=== PATIENT | female | born 1990 | race Caucasian/White ===

== ENCOUNTER 2017-06-26 19:55 | Emergency (ER) | payer OTHER ==
[~2017-06-26] VITALS: Ht 165.1 cm; Wt 125.2 kg
[~2017-06-26 19:55] MED LIST: ALBU90OI INH; AZIT250 PO; BUPR100 PO; BUPR100ER PO; CEPH500 PO; CODACE30 PO; Cortisporin Ear10 M1 RIGHTEAR; DIPATR PO; Esgic Tablet1 EACH PO; Floxin10 ML RIGHTEAR; HYDACE5 PO; IBUP800 PO; Keflex500 MG PO; MEDR10 PO; Mobic7.5 MG PO; NAPR500 PO; NITR100CA PO; OXYACE5T; OXYACE5T PO; PROM25 PO; Pepcid40 MG PO; RANI150 PO; RISP1 PO; ROXICODONE5 MG PO; SERT50 PO; VIT D3 PO; Verotin-Gr Cap1 EACH PO; Zofran Odt8 MG SL; Zofran4 MG PO; [UNRECOGNIZED DRUG - OTHER]
[2017-06-26] MEDS ORDERED: LAMO25 PO (20:11)
[2017-06-26] MEDS ORDERED: Prednisone50 MG PO (21:20)
[2017-06-26] MEDS ORDERED: Robaxin500 MG PO (21:20)
== END 2017-06-26 21:35 | disposition home or self-care (01) ==
LOC: ER 19:55
DX: M54.16 Radiculopathy, lumbar region (principal); Z79.899 Other long term (current) drug therapy
CPT/HCPCS: 96372; 99283; J1885

== ENCOUNTER → 2017-09-13 | Outpatient (CLI) | payer OTHER ==
[~2017-09-13] MED LIST changes: +LAMO25 PO; +Prednisone50 MG PO; +Robaxin500 MG PO
[2017-09-13 12:47] LABS: U Amphetamine Screen Not Detected; U Barbituate Screen Not Detected; U Benzodiazapine Screen Not Detected; U Cannabinoids Screen Not Detected; U Cocaine Screen Not Detected; U Methadone Screen Not Detected; U Methamphetamine Screen Not Detected; U Opiates Screen Not Detected; U Phencyclidine Screen Not Detected
[2017-09-13 12:48] LABS: U Buprenorphine Screen Not Detected; U Oxycodone Screen Not Detected; U Propoxyphene Screen Not Detected
== END ==
LOC: LAB SHORT 12:00 → LAB 12:00
PROVIDERS: Registered Nurse
DX: Z51.81 Encounter for therapeutic drug level monitoring (principal); Z79.899 Other long term (current) drug therapy

== ENCOUNTER 2019-10-11 09:15 | Emergency (ER) | payer OTHER ==
[~2019-10-11] VITALS: Ht 165.1 cm; Wt 135.6 kg
[~2019-10-11 09:15] MED LIST changes: +Inderal 20 mg T20 MG PO; +LAMO100 PO; -LAMO25 PO; +LORA2 PO; +ZOLP10
[2019-10-11] MEDS ORDERED: ARIP10 PO (09:25)
[2019-10-11] MEDS ORDERED: FLUOXETINE HCL60 MG PO (09:26)
[2019-10-11] MEDS ORDERED: TOPIRAMATE ER50 MG PO (09:26)
[2019-10-11 09:54] LABS: BASOPHILS ABSOLUTE AUTO 0.04 K/mm3 (0.00-0.23); BASOPHILS PERCENT AUTO 1 % (0-2); EOSINOPHILS ABSOLUTE AUTO 0.09 K/mm3 (0.00-0.68); EOSINOPHILS PERCENT AUTO 1 % (0-6); Hematocrit 43.3 % (33.0-51.0); Hemoglobin 13.7 g/dL (11.5-16.0); IMMATURE GRAN ABSOLUTE AUTO 0.03 K/mm3 (0.00-0.10); IMMATURE GRAN PERCENT AUTO 0 % (0-1); LYMPHOCYTES PERCENT AUTO 22 % (21-46); MONOCYTES ABSOLUTE AUTO 0.61 K/mm3 (0.16-1.47); MONOCYTES PERCENT AUTO 7 % (4-13); Mean Corpuscular HGB 27.5 pg (26.0-34.0); Mean Corpuscular HGB Conc 31.6 g/dL (31.5-36.5); Mean Platelet Volume 9.7 fL (9.1-12.4); NEUTROPHILS PERCENT AUTO 68 % (41-73); Platelet Count 301 K/mm3 (150-400); RDW Coefficient Variation 12.9 % (11.7-14.2); RDW Standard Deviation 40.5 fL (35.1-46.3); Red Blood Cell Count 4.99 M/mm3 (3.80-5.20); White Blood Cell Count 8.47 K/mm3 (4.00-11.30)
[2019-10-11 09:56] LABS: Mean Corpuscular Volume 87 fL (80-100)
[2019-10-11 10:10] LABS: Alanine Aminotransfer (ALT/SGP 36 U/L (12-78); Albumin, Blood 3.5 g/dL (3.4-5.0); Albumin/Globulin Ratio 0.8 (0.8-1.8); Alk Phos 78 U/L (50-136); Anion Gap 7 mmol/L (6-16); Aspartate Aminotrans (AST/SGOT 45 U/L (12-37); Bilirubin, Total 0.6 mg/dL (0.1-1.0); Blood Urea Nitrogen 10 mg/dL (8-24); Bun/Creatinine Ratio 13.2 (12.0-20.0); CO2, Blood 22 mmol/L (21-32); Calcium, Blood 8.8 mg/dL (8.5-10.1); Chloride, Blood 109 mmol/L (98-108); Creatinine, Blood 0.76 mg/dL (0.40-1.00); Globulin, Blood 4.2 g/dL (2.2-4.0); Glomerular Filtration Rate >60 (60-); Glucose, Blood 114 mg/dL (70-99); Potassium, Blood 5.4 mmol/L (3.5-5.5); Sodium, Blood 138 mmol/L (136-145); Total Protein, Blood 7.7 g/dL (6.4-8.2)
[2019-10-11] MEDS ORDERED: PRAHYD1AEA PR (11:15)
== END 2019-10-11 11:24 | disposition home or self-care (01) ==
LOC: ER 09:15
PROVIDERS: Emergency Medicine
DX: K64.8 Other hemorrhoids (principal); F41.9 Anxiety disorder, unspecified; Z79.899 Other long term (current) drug therapy
CPT/HCPCS: 36415; 74176; 80053; 85025; 99285-25

== ENCOUNTER 2019-10-19 11:35 | Day surgery (SDC) | payer OTHER ==
[~2019-10-19] VITALS: Ht 167.6 cm; Wt 132.8 kg
[~2019-10-19 11:35] MED LIST changes: +AMBIEN10 MG PO; +ARIP10 PO; +FLUOXETINE HCL60 MG PO; +Lorazepam1 MG PO; +PRAHYD1AEA PR; +TOPIRAMATE ER50 MG PO
--- NOTE | 2019-10-19 12:11 | NUR ---
Ambulatory in Day Surgery History, Chart, Medications and Allergies reviewed before start of procedure. Patient confirms NPO status and agrees with scheduled surgery. Pre-Op teaching done. Pt verbalizes understanding.
--- NOTE | 2019-10-19 14:01 | NUR ---
REPORT FROM ORIANA RAY. PT VERY DROWSY, VSS.
--- NOTE | 2019-10-19 14:05 | NUR ---
10/19/19 1405 AKIKO GARCIA History, Chart, Medications and Allergies reviewed before start of procedure. O2 VIA N/C INTACT THROUGHOUT SEDATION/PROCEDURE. 3-LEAD EKG REVIEWED WITH PHYSICIAN PRIOR TO START OF PROCEDURE. MONITOR INTACT WITH CONTINUOUS PULSE OXIMETRY AND INTERMITTENT BP. MAC WITH DR. SMYTH.
--- NOTE | 2019-10-19 15:04 | NUR ---
PT PROVIDED WITH WARM COMPRESS TO RIGHT FOREARM IV SITE. INFILTRATION NOTED. AND PATIENT AWARE OF SIGNS AND SYMPTOMS TO REPORT TO MD. Patient up to Ambulate independently. Gait steady. Discharge instructions reviewed with patient. Patient verbalizes understanding. Copy given to patient to take home. Patient States Post-Procedure ride home has been arranged. Discharged via wheelchair to private car for ride home. ALL BELONINGS RETURNED TO [facility].
== END 2019-10-19 23:15 | disposition home or self-care (01) ==
LOC: ORSCMMR 11:35 → ORD 12:30 → ORSCMMR 13:00 → ORD 13:00 → ORSCMMR 23:15
PROVIDERS: Student in an Organized Health Care Education/Training Program
PROC: 0DB58ZX Excision of Esophagus, Via Natural or Artificial Opening Endoscopic, Diagnostic (ICD-10-PCS; principal; 2019-10-19 13:00)
PROC: 0DB98ZX Excision of Duodenum, Via Natural or Artificial Opening Endoscopic, Diagnostic (ICD-10-PCS; principal; 2019-10-19 13:00)
PROC: 0DB68ZX Excision of Stomach, Via Natural or Artificial Opening Endoscopic, Diagnostic (ICD-10-PCS; principal; 2019-10-19 13:00)
PROC: 0DJD8ZZ Inspection of Lower Intestinal Tract, Via Natural or Artificial Opening Endoscopic (ICD-10-PCS; principal; 2019-10-19 13:00)
DX: K92.1 Melena (principal); K64.8 Other hemorrhoids; K64.4 Residual hemorrhoidal skin tags; K57.30 Diverticulosis of large intestine without perforation or abscess without bleeding; R10.84 Generalized abdominal pain; K21.9 Gastro-esophageal reflux disease without esophagitis; K29.70 Gastritis, unspecified, without bleeding; R11.2 Nausea with vomiting, unspecified; F41.8 Other specified anxiety disorders; E66.01 Morbid (severe) obesity due to excess calories; Z68.42 Body mass index [BMI] 45.0-49.9, adult; Z79.899 Other long term (current) drug therapy
CPT/HCPCS: 88305; 88342; J2250; J2405; J2704; J7120